=== PATIENT | female | born 1940 | race Caucasian/White ===

== ENCOUNTER 2021-07-22 10:13 | Observation (INO) ==
[2021-07-22] MEDS ORDERED: IOPAMIDOL 100 ML BOTTLE IV ONE (10:14)
--- NOTE | 2021-07-22 10:23 | Emergency Department Note ---
HPI General Chief complaint: Weakness Stated complaint: weakness Time Seen by Provider: 07/22/21 10:22 Source: EMS Mode of arrival: EMS Limitations: no limitations History of Present Illness HPI Narrative: 81-year-old female with past medical history of hypertension presenting with weakness and speech difficulty. Patient was seen in the ED yesterday and evaluated for an episode of generalized lower extremity weakness and presyncope. She was noted to be hypertensive. EKG, labs, and CT brain without contrast yesterday were normal. Patient's symptoms resolved and blood pressure improved with p.o. clonidine. She was discharged home in good condition. She returns this morning because around 10 AM she developed acute right-sided weakness of her right arm and right leg with associated numbness in the right face and difficulty speaking. She was able to call a family member and they brought her to the ED. Patient symptoms lasted about 10 minutes and resolved spontaneously. Currently she has no complaints, denies headache, weakness, vision changes, or difficulty speaking. No recent fall or head injury. No other complaints. Related Data Previous Rx's Medication Instructions Recorded hyoscyamine sulfate 0.125 mg 0.125 mg SUBLINGUAL QID PRN #30 tab 06/15/20 sublingual tablet (Levsin/SL) amlodipine 5 mg tablet 5 mg PO QDAY #30 tab 07/21/21 Allergies Allergy/AdvReac Type Severity Reaction Status Date / Time latex Allergy Mild Rash Verified 07/22/21 10:19 Review of Systems ROS ROS Narrative: Narrative: Constitutional: Denies fever or chills Eyes: Denies vision change ENT ED: Denies throat pain Cardiovascular: Denies chest pain or palpitations Respiratory: Denies shortness of breath or cough Gastrointestinal: Denies abdominal pain, nausea or vomiting Genitourinary: Denies dysuria or frequency Musculoskeletal: Denies back pain or joint swelling Integumentary: Denies rash or lesions Neurological: Reports weakness and numbness; Denies headache or dizziness Psychiatric: Denies anxiety Endocrine: Denies fatigue Hematological/Lymphatic: Denies easy bleeding PFSH Narrative Patient History Narrative: Narrative: Medical/Surgical/Family History All Active Problems (Updated 07/22/21 @ 15:10 by Jasvir Mathias MD) Hypertension (Acute) Transient ischemic attack (TIA) (Acute) Pre-syncope (Acute) Cholelithiasis (Acute) Social History Smoking Status: Never smoker Exam Narrative Narrative: Narrative: General Limitations: no limitations General appearance: Present alert and in no apparent distress Head Head: Present atraumatic and normocephalic Eye Eye: Present normal appearance, PERRL, EOMI and visual feliz intact; Absent scleral icterus, conjunctival injection or nystagmus ENT ENT: Present mucous membranes moist Neck Neck: Present normal inspection, full ROM and trachea midline; Absent meningismus or lymphadenopathy Chest Chest: Present symmetric chest wall rise Respiratory Respiratory: Present normal lung sounds bilaterally; Absent respiratory distress, wheezes, stridor, accessory muscle use or prolonged expiratory phase Cardiovascular Cardiovascular: Present regular rate and normal rhythm; Absent systolic murmur or diastolic murmur Adbominal Abdominal: Present soft; Absent distention, tenderness, guarding, rebound or rigidity Extremities Extremities: Present normal inspection; Absent pretibial edema Back Back: Present normal inspection; Absent spinous process tenderness Neurological Neurological: Present alert, oriented X3 and CN II-XII intact; Absent motor sensory deficit Expanded Neurological Patient oriented to: Present person, place and time Speech: Present fluid speech; Absent expressive aphasia or dysarthria CRANIAL NERVES: EOM function (II, III, IV, ): Normal, facial sensation (V): Normal, facial palsy (VII): Normal, gag reflex (IX): Normal, spinal accessory function (XI): Normal and tongue deviation (XII): Normal CEREBELLAR FUNCTION: finger to nose: Normal and heel to john: Normal CEREBELLAR FUNCTION: normal gait Motor strength - LUE: 5/5 Motor strength - RUE: 5/5 Motor strength - LLE: 5/5 Motor strength - RLE: 5/5 UPPER MOTOR NEURON EXAM: alvina neglect: Normal and pronator drift: Normal SENSORY EXAM UPPER EXTREMITY: Normal: light touch SENSORY EXAM LOWER EXTREMITY: Normal: light touch Coma Scale Eye Opening: Spontaneous Coma Scale Motor Response: Obeys Commands Coma Scale Verbal Response: Oriented Coma Scale Total: 15 Psychiatric Psychiatric: Present normal affect and normal mood Skin Skin: Present warm (WNL) and dry Course Consultations Consultation #1: Dr. Chris, neurologist at [facility] Time: 11:40 Consultation #2: Dr. Hayward, neurology at [facility] Vital Signs Vital signs: Vital Signs Temperature 97.5 F 07/22/21 10:15 Pulse Rate 73 07/22/21 10:15 Respiratory Rate 14 07/22/21 10:15 Blood Pressure 163/78 07/22/21 10:15 Pulse Oximetry (%) 97 07/22/21 10:15 Temperature 97.5 F 07/22/21 10:15 Pulse Rate 59 L 07/22/21 14:31 Respiratory Rate 17 07/22/21 14:31 Blood Pressure 160/70 07/22/21 14:31 Pulse Oximetry (%) 98 07/22/21 14:31 MDM MDM Narrative Medical decision making narrative: 81-year-old female presenting with right-sided weakness and speech difficulty that is resolved. She is mildly hypertensive today to 143/70. She has no neurologic deficits on exam, NIH stroke scale is 0. Given her similar symptoms consistent with TIA twice in the last 24 hours I consulted neurology, Dr. Chris, at [facility]. She recommends obtaining CTAs of the head and neck as well as an MRI of the brain without contrast to further evaluate. Will obtain these studies and reassess. 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 No other significant stenosis or occlusion noted. Dr. Chris of neurology also recommends starting the patient on aspirin 325mg daily and atorvastatin 80mg as long as there is no evidence of intracranial hemorrhage on imaging. Will give these to the patient at this time. Goal blood pressure should be less than 160 systolic. Plavix can be considered depending on MRI results. MRI is pending. 1450: MRI shows minimal chronic ischemic changes without evidence of acute CVA. Dr. Chris of neurology paged. 1503: I spoke with Dr. Hayward of neurology at [facility]. She recommends loading the patient with 300 mg of p.o. Plavix and admitting overnight for monitoring. She states patient should be started on aspirin 325 mg daily, statin, and Plavix 75 mg daily. Will plan for admission. Patient endorsed to onccristofer PALMA, Dr. Tolbert. Lab Data Lab results reviewed: Yes I reviewed the patient's lab results. Labs: Lab Results 07/22/21 Range/Units 12:32 POC Creatinine 1.0 (0.6-1.2) mg/dL Radiology Data Radiology results reviewed: Yes I reviewed the patient's radiology results. Radiology results narrative: Ordering Physician:Jasvir Mathias M.D. Date of Service:07/22/21 Procedure(s):CT head/brain wo con CLINICAL INFORMATION: Possible CVA COMPARISON: 07/21/2021 TECHNIQUE: 2.5 mm helical slices were obtained in the skull base to vertex. Following reconstruction, axial reformatted images were reviewed at bone and parenchymal windows. The exam was performed using radiation dose optimization techniques including, but not limited to, automated exposure control, adjustment of the mA and/or kV according to patient size and use of iterative reconstruction technique. FINDINGS: The ventricles, sulci, fissures, and cisterns are symmetrically enlarged compatible with mild age-related atrophy. No extra-axial fluid collections are identified. Mild patchy chronic ischemic changes, in the deep cerebral white matter, are expected for age. There is no hemorrhage, mass effect, or edema. Bone windows show no osseous abnormality. IMPRESSION: Mild atrophy and chronic ischemic changes in the deep cerebral white matter-expected for age. No acute findings Interpreted and Authenticated by: Best Max 07/22/21 Ordering Physician:Jasvir Mathias M.D. Date of Service:07/22/21 Procedure(s):CT angio head CLINICAL INFORMATION: Right-sided weakness and dysarthria. Possible CVA COMPARISON: None. TECHNIQUE: 80 cc of Isovue-370 were injected intravenously , and using SmartPrep to maximize cerebral arterial opacification, 0.625 mm helical slices were obtained from the skull base through the cerebral vertex. Following reconstruction , sagittal, coronal and axial reformatted images were processed and reviewed at multiple windows and levels. 3D volume rendered and MIP images were acquired at a independent workstation. The exam was performed using radiation dose optimization techniques including, but not limited to, automated exposure control, adjustment of the mA and/or kV according to patient size and use of iterative reconstruction technique. FINDINGS: The intracranial right vertebral artery is hypoplastic with left vertebral artery dominance. There is mild (50%) stenosis of the M1 segment of the right middle cerebral artery. The remaining right middle, intracranial internal carotid, basilar, anterior, and posterior cerebral arteries and their branches are well-opacified and normal in contour and caliber without significant stenosis, occlusion or other pathology. Superficial/deep cerebral veins and deep venous sinuses are widely patent IMPRESSION: 1. 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 No evidence of significant stenosis or occlusion. Interpreted and Authenticated by: Best Max 07/22/21 Ordering Physician:Jasvir Mathias M.D. Date of Service:07/22/21 Procedure(s):CT angio neck CLINICAL INFORMATION: Right-sided weakness and dysarthria COMPARISON: None. TECHNIQUE: 80 cc of Isovue-300 were injected intravenously followed by 40 cc of normal saline flush. Using SmartPrep, 0.625 helical slices were obtained from the thoracic aortic arch through the [place]. Following reconstruction, 2.5 mm sagittal, coronal and axial reformatted images were processed. MIPS , 3-D volume rendering and CPR images were also constructed. The exam was performed using radiation dose optimization techniques including, but not limited to, automated exposure control, adjustment of the mA and/or kV according to patient size and use of iterative reconstruction technique. FINDINGS: The thoracic aortic arch is normal diameter with minimal intimal thickening and conventional aortic branching. The brachiocephalic, both subclavian, both common, internal and external carotid and both vertebral arteries are widely patent without significant abnormality. Markedly enlarged multinodular thyroid appreciated compatible with multinodular adenoma IMPRESSION: No vascular abnormality. Enlarged Multinodular thyroid adenoma Interpreted and Authenticated by: Best Max 07/22/21 Ordering Physician:Jasvir Mathias M.D. Date of Service:07/22/21 Procedure(s):MR head/brain stroke CLINICAL INFORMATION: Right-sided weakness and dysarthria. Question CVA COMPARISON: Head CT 07/22/2021 TECHNIQUE:Sagittal T1 FLAIR, axial T2 FLAIR propeller, diffusion, and ADC images were acquired FINDINGS: The ventricles, sulci, fissures and cisterns are normal in size configuration-no for age extra-axial fluid collections or mass are appreciated. Scattered chronic ischemic foci in the cerebral white matter are expected for age. There are no regions of restricted diffusion to suggest acute CVA. No hemorrhage edema or mass effect. The signal void in intracerebral arteries, extra-axial cranial nerves, pituitary, orbits and paranasal sinuses are all normal. IMPRESSION: Mild atrophy and minimal chronic ischemic changes in the cerebral white matter-expected for age. No evidence of acute CVA Interpreted and Authenticated by: Best Max 07/22/21 15 15 Auto Roller: <Electronically signed by Best Max M.D. in [place]> 07/22/211417 Discharge Plan Patient/Caregiver Discharge Instructions Pt seen by MEDICAL STAFF DIRECTOR/PA only: No Clinical Impression: Transient ischemic attack (TIA) Patient Disposition: Still a Patient Follow up with: Devante Magallanes DO [Primary Care Provider] - Prescriptions: No Action hyoscyamine sulfate [Levsin/SL] 0.125 mg tablet, sublingual 0.125 mg SUBLINGUAL QID PRN (Reason: pain) Qty: 30 0RF amlodipine 5 mg tablet 5 mg PO QDAY Qty: 30 0RF
--- NOTE | 2021-07-22 12:59 | Cat Scan Report ---
CLINICAL INFORMATION: Possible CVA COMPARISON: 07/21/2021 TECHNIQUE: 2.5 mm helical slices were obtained in the skull base to vertex. Following reconstruction, axial reformatted images were reviewed at bone and parenchymal windows. The exam was performed using radiation dose optimization techniques including, but not limited to, automated exposure control, adjustment of the mA and/or kV according to patient size and use of iterative reconstruction technique. FINDINGS: The ventricles, sulci, fissures, and cisterns are symmetrically enlarged compatible with mild age-related atrophy. No extra-axial fluid collections are identified. Mild patchy chronic ischemic changes, in the deep cerebral white matter, are expected for age. There is no hemorrhage, mass effect, or edema. Bone windows show no osseous abnormality. IMPRESSION: Mild atrophy and chronic ischemic changes in the deep cerebral white matter-expected for age. No acute findings Interpreted and Authenticated by: Best Max 07/22/21
--- NOTE | 2021-07-22 13:38 | Cat Scan Report ---
CLINICAL INFORMATION: Right-sided weakness and dysarthria. Possible CVA COMPARISON: None. TECHNIQUE: 80 cc of Isovue-370 were injected intravenously , and using SmartPrep to maximize cerebral arterial opacification, 0.625 mm helical slices were obtained from the skull base through the cerebral vertex. Following reconstruction , sagittal, coronal and axial reformatted images were processed and reviewed at multiple windows and levels. 3D volume rendered and MIP images were acquired at a independent workstation. The exam was performed using radiation dose optimization techniques including, but not limited to, automated exposure control, adjustment of the mA and/or kV according to patient size and use of iterative reconstruction technique. FINDINGS: The intracranial right vertebral artery is hypoplastic with left vertebral artery dominance. There is mild (50%) stenosis of the M1 segment of the right middle cerebral artery. The remaining right middle, intracranial internal carotid, basilar, anterior, and posterior cerebral arteries and their branches are well-opacified and normal in contour and caliber without significant stenosis, occlusion or other pathology. Superficial/deep cerebral veins and deep venous sinuses are widely patent IMPRESSION: 1. 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 No evidence of significant stenosis or occlusion. Interpreted and Authenticated by: Best Max 07/22/21
--- NOTE | 2021-07-22 13:41 | Cat Scan Report ---
CLINICAL INFORMATION: Right-sided weakness and dysarthria COMPARISON: None. TECHNIQUE: 80 cc of Isovue-300 were injected intravenously followed by 40 cc of normal saline flush. Using SmartPrep, 0.625 helical slices were obtained from the thoracic aortic arch through the [place]. Following reconstruction, 2.5 mm sagittal, coronal and axial reformatted images were processed. MIPS , 3-D volume rendering and CPR images were also constructed. The exam was performed using radiation dose optimization techniques including, but not limited to, automated exposure control, adjustment of the mA and/or kV according to patient size and use of iterative reconstruction technique. FINDINGS: The thoracic aortic arch is normal diameter with minimal intimal thickening and conventional aortic branching. The brachiocephalic, both subclavian, both common, internal and external carotid and both vertebral arteries are widely patent without significant abnormality. Markedly enlarged multinodular thyroid appreciated compatible with multinodular adenoma IMPRESSION: No vascular abnormality. Enlarged Multinodular thyroid adenoma Interpreted and Authenticated by: Best Max 07/22/21
[2021-07-22] MEDS ORDERED: ATORVASTATIN 40 MG TABLET PO ONE (14:09)
[2021-07-22] MEDS ORDERED: ASPIRIN 325 MG ENTERIC COATED TABLET PO ONE (14:09)
--- NOTE | 2021-07-22 14:22 | Magnetic Resonance Report ---
CLINICAL INFORMATION: Right-sided weakness and dysarthria. Question CVA COMPARISON: Head CT 07/22/2021 TECHNIQUE:Sagittal T1 FLAIR, axial T2 FLAIR propeller, diffusion, and ADC images were acquired FINDINGS: The ventricles, sulci, fissures and cisterns are normal in size configuration-no for age extra-axial fluid collections or mass are appreciated. Scattered chronic ischemic foci in the cerebral white matter are expected for age. There are no regions of restricted diffusion to suggest acute CVA. No hemorrhage edema or mass effect. The signal void in intracerebral arteries, extra-axial cranial nerves, pituitary, orbits and paranasal sinuses are all normal. IMPRESSION: Mild atrophy and minimal chronic ischemic changes in the cerebral white matter-expected for age. No evidence of acute CVA Interpreted and Authenticated by: Best Max 07/22/21
[2021-07-22] MEDS ORDERED: CLOPIDOGREL 300 MG TABLET PO ONE (14:58)
[2021-07-22] MEDS ORDERED: ATORVASTATIN 10 MG TABLET PO SCH (16:25)
[2021-07-22] MEDS ORDERED: BISACODYL 10 MG SUPP.RECT PR PRN (16:28)
[2021-07-22] MEDS ORDERED: HYDROmorphone 0.5 MG/0.5 ML SYRINGE IV PRN (16:28)
[2021-07-22] MEDS ORDERED: oxyCODONE HCL 5 MG TABLET PO PRN (16:28)
[2021-07-22] MEDS ORDERED: MAG HYDROX/AL HYDROX/SIMETH 30 ML ORAL.SUSP PO PRN (16:28)
[2021-07-22] MEDS ORDERED: PROCHLORPERAZINE 10 MG/2 ML VIAL IV PRN (16:28)
[2021-07-22] MEDS ORDERED: MAGNESIUM HYDROXIDE 30 ML ORAL.SUSP PO PRN (16:28)
[2021-07-22] MEDS ORDERED: ALBUTEROL SULFATE 2.5 MG/3 ML NEBULIZER NEB PRN (16:28)
[2021-07-22] MEDS ORDERED: ONDANSETRON 4 MG/2 ML VIAL IV PRN (16:28)
[2021-07-22] MEDS ORDERED: ACETAMINOPHEN 325 MG TABLET PO PRN (16:28)
[2021-07-22] MEDS ORDERED: traZODone HCL 50 MG TABLET PO PRN (16:28)
[2021-07-22] MEDS ORDERED: NITROGLYCERIN 0.4 MG TAB.SUBL SL PRN (16:28)
--- NOTE | 2021-07-22 16:45 | Internal Med History&Physical ---
HPI History of Present Illness Patient information: Note initiated : 07/22/21 at 4:34 pm Service Date, if different from initiated Date: [] Patient: Rylee Evangelista a 81 y/o F admitted on for weakness. Chief Complaint: [] History of present illness: Ms. Evangelista is a 81 year of F With history of hypertension, presents to the emergency room today for evaluation of right-sided weakness. The patient reports that yesterday she had a similar episode in which the right side of the face and right side of her body was numb, she felt weak and therefore she had presented to the emergency room. By the time she reached the ER, her symptoms had resolved, they diagnosed her with hypertension, give her some clonidine start on p.o. amlodipine and sent home. Head CT was done which was negative. The patient again today had another episode of right-sided facial numbness, slurring of speech, and weakness on the right upper and lower extremity. Symptoms lasted around 10 minutes and she presented to the emergency room again. By the time she reached the emergency room all her symptoms had resolved except for mild slurring. Which has since resolved. 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 EKG was sinus on monitor, full ekg pending Patient case was discussed with neurology, advised loading with clopidogrel, and admitting the patient to the hospital for further monitoring.The patient denies any headache, denies any difficulty in swallowing at present, denies any cough or fever, denies any bowel bladder issues. Review of Systems All systems: reviewed and no additional remarkable complaints except as stated PFSH PFSH All Active Problems Hypertension (Acute) Transient ischemic attack (TIA) (Acute) Pre-syncope (Acute) Cholelithiasis (Acute) MEDS/ALLERGIES Home Medications and Allergies Home Medications Medication Instructions Recorded Confirmed Type hyoscyamine sulfate 0.125 mg 0.125 mg SUBLINGUAL QID PRN #30 tab 06/15/20 Rx sublingual tablet (Levsin/SL) amlodipine 5 mg tablet 5 mg PO QDAY #30 tab 07/21/21 Rx Allergies Allergy/AdvReac Type Severity Reaction Status Date / Time latex Allergy Mild Rash Verified 07/22/21 10:19 EXAM Constitutional Vitals: Temp Pulse Resp BP Pulse Ox 97.5 F 59 L 23 H 160/70 98 07/22/21 10:15 07/22/21 14:31 07/22/21 15:16 07/22/21 14:31 07/22/21 14:31 General appearance: cooperative, no acute distress and obese Head Head exam: Present atraumatic and normal inspection Eye Eye exam: Present EOMI, normal appearance and PERRL; Absent scleral icterus ENT ENT exam: Present mucous membranes moist and normal external ear exam Neck Neck exam: Present full ROM and normal inspection Cardiovascular Cardiovascular exam: Present normal rate and rhythm, +S1 and +S2 GI/Abdominal GI/Abdominal exam: Present normal bowel sounds and soft; Absent guarding or tenderness Rectal Rectal exam: Present deferred Neurological Exam Neurological exam: Present alert, CN II-XII intact and oriented X3 Expanded Neurological Exam Neurological exam: Present protecting the airway; Absent expressive aphasia or receptive aphasia Patient oriented to: Present person, place and time Speech: Present fluid speech Cranial nerves: EOM's intact: Normal Sensory exam: lower extremity light touch: Normal and upper extremity light touch: Normal Neuro motor strength exam: LUE: 5, RUE: 5, LLE: 5 and RLE: 5 Coma Scale Eye Opening: Spontaneous Coma Scale Motor Response: Obeys Commands Coma Scale Verbal Response: Oriented Coma Scale Total: 15 Psychiatric Psychiatric exam: Present normal affect and normal mood Skin Skin exam: Absent cyanosis, petechiae or rash DATA Data Completed and Pending Labs: Labs from last 24 hours 07/22/21 12:32 POC Creatinine 1.0 A/P Narrative A/P Narrative: A/P TIA Hypertension, essential Obesity, bmi > 30 Plan Admit to obs status Neurochecks q4hrs monitor bp, continue amlodipine for now ASA 81mg dailiy, (325 x 1 given), Plavix [id number], continue plavix 75mg daily x 3 weeks, then only asa 81 (as recommended by neurology) High dose statin started, get echo with buble monitor on tele if no e/o afib consider getting a meghan of heart 30 day holter at dischage. Time Spent With Patient Time: Total time spent is greater than 50% in coordination of care (as documented) at patient's floor/unit and/or counseling patient:
[2021-07-22 17:02] LABS: HDL Cholesterol 64 mg/dL (>40); LDL Cholesterol,Calculated 102 mg/dL (<100); Non-HDL Cholesterol 120 mg/dL (<130); Triglycerides 94 mg/dL (<150)
[2021-07-22 17:09] LABS: Estimated Average Glucose(eAG) 111 mg/dL; Hemoglobin A1C 5.5 % Hgb (4.0-6.0)
[2021-07-22 17:42] LABS: Basophils # (Auto) 0.03 K/mcL (0.00-0.30); Basophils % (Auto) 0.4 % (0.0-2.0); Eosinophils # (Auto) 0.12 K/mcL (0.00-0.70); Eosinophils % (Auto) 1.8 % (0.0-7.0); Hematocrit 39.7 % (34.1-44.9); Hemoglobin 13.1 g/dL (11.2-15.7); Lymphocytes # (Auto) 1.15 K/mcL (1.50-4.80); Lymphocytes % (Auto) 17.1 % (15.5-49.0); Mean Cell Volume 91.1 fL (80.0-100.0); Mean Platelet Volume 12.6 fL (7.4-10.4); Monocytes # (Auto) 0.57 K/mcL (0.10-0.90); Monocytes % (Auto) 8.5 % (1.0-12.0); Neutrophils % (Auto) 72.2 % (38.0-78.0); Platelet Count 197 K/mcL (140-440); RBC 4.36 M/mcL (3.59-5.38); Red Cell Distribution Width 14.2 % (11.5-14.5); WBC 6.7 K/mcL (4.5-11.0)
[2021-07-22 17:45] LABS: Prothrombin Time 13.3 sec (11.9-14.5)
[2021-07-22 17:53] LABS: ALT/SGPT 14 U/L (<40); AST/SGOT 21 U/L (<32); Albumin 3.6 gm/dL (3.2-5.2); Albumin/Globulin Ratio 1.3 (1.0-2.3); Alkaline Phosphatase 116 U/L (39-117); Bilirubin,Direct < 0.2 mg/dL (0-0.3); Bilirubin,Total 0.4 mg/dL (0.1-1.0); Blood Urea Nitrogen 20 mg/dL (8-23); Calcium 8.7 mg/dL (8.6-10.4); Carbon Dioxide 24 mmol/L (22-30); Chloride 102 mmol/L (96-108); Globulin 2.8 gm/dL (2.2-3.7); Glomerular Filtration Rate 60; Glucose 96 mg/dL (70-105); Lactate Dehydrogenase 190 U/L (135-225); Phosphorous 2.8 mg/dL (2.5-4.5); Triglycerides 99 mg/dL (<150); Uric Acid 6.5 mg/dL (2.5-8.0)
[2021-07-22] MEDS: amLODIPine 5 MG TABLET PO SCH (18:55)
[2021-07-22] MEDS: FAMOTIDINE 20 MG TABLET PO SCH (20:03)
[2021-07-22] MEDS: 0.9 % SODIUM CHLORIDE 10 ML SYRINGE IV SCH (20:04)
[2021-07-22] MEDS: DOCUSATE SODIUM 100 MG CAPSULE PO SCH (20:04)
[2021-07-22] MEDS ORDERED: ATORVASTATIN 40 MG TABLET PO SCH (21:00)
[2021-07-22] MEDS ORDERED: SENNOSIDES 1 TABLET PO SCH (21:00)
[2021-07-23] MEDS: 0.9 % SODIUM CHLORIDE 10 ML SYRINGE IV SCH (04:06)
[2021-07-23 07:11] LABS: Basophils # (Auto) 0.05 K/mcL (0.00-0.30); Eosinophils # (Auto) 0.23 K/mcL (0.00-0.70); Eosinophils % (Auto) 4.5 % (0.0-7.0); Hematocrit 42.1 % (34.1-44.9); Hemoglobin 13.4 g/dL (11.2-15.7); Lymphocytes # (Auto) 1.42 K/mcL (1.50-4.80); Mean Cell Volume 94.4 fL (80.0-100.0); Mean Corpuscular HGB Conc 31.8 g/dL (31.0-36.0); Mean Platelet Volume 11.9 fL (7.4-10.4); Monocytes # (Auto) 0.45 K/mcL (0.10-0.90); Monocytes % (Auto) 8.9 % (1.0-12.0); Neutrophils % (Auto) 57.6 % (38.0-78.0); Platelet Count 189 K/mcL (140-440); RBC 4.46 M/mcL (3.59-5.38); Red Cell Distribution Width 14.4 % (11.5-14.5); WBC 5.1 K/mcL (4.5-11.0)
[2021-07-23 07:51] LABS: ALT/SGPT 11 U/L (<40); AST/SGOT 17 U/L (<32); Albumin 3.3 gm/dL (3.2-5.2); Albumin/Globulin Ratio 1.2 (1.0-2.3); Alkaline Phosphatase 98 U/L (39-117); Bilirubin,Direct < 0.2 mg/dL (0-0.3); Bilirubin,Total 0.9 mg/dL (0.1-1.0); Blood Urea Nitrogen 14 mg/dL (8-23); Calcium 8.7 mg/dL (8.6-10.4); Carbon Dioxide 21 mmol/L (22-30); Chloride 105 mmol/L (96-108); Globulin 2.8 gm/dL (2.2-3.7); Glomerular Filtration Rate 81; Glucose 97 mg/dL (70-105); Lactate Dehydrogenase 170 U/L (135-225); Phosphorous 3.2 mg/dL (2.5-4.5); Triglycerides 76 mg/dL (<150); Uric Acid 6.2 mg/dL (2.5-8.0)
[2021-07-23] MEDS: DOCUSATE SODIUM 100 MG CAPSULE PO SCH (08:46)
[2021-07-23] MEDS: amLODIPine 5 MG TABLET PO SCH (08:46)
[2021-07-23] MEDS: FAMOTIDINE 20 MG TABLET PO SCH (08:46)
--- NOTE | 2021-07-23 08:56 | EKG ---
[facility] Test Date: 2021-07-22 Pat Name: Rylee Evangelista Department: ED Room: Gender: Female Practice Support Specialist: : [id number] Requested By: Daniel Alejandre Order Number: [id number] Reading MD: Amna Justin D.O. Measurements Intervals [place] Rate: 59 P: 74 MA: 182 QRS: 0 QRSD: 88 T: 45 QT: 427 QTc: 423 Interpretive Statements Sinus rhythm Abnormal R-wave progression, early transition Electronically Signed On 07-23-2021 8:55:50 PST by Amna Justin D.O. /store/[id number]
[2021-07-23] MEDS ORDERED: ASPIRIN 81 MG TAB.CHEW PO SCH (09:00)
[2021-07-23] MEDS ORDERED: CLOPIDOGREL 75 MG TABLET PO SCH (09:00)
[2021-07-23] MEDS ORDERED: ENOXAPARIN 40 MG/0.4 ML SYRINGE SQ SCH (09:00)
--- NOTE | 2021-07-23 09:43 | Discharge Summary ---
Discharge Provider Provider Patient information: Note initiated : 07/23/21 at 9:42 am Service Date, if different from initiated Date: [] Patient: Rylee Evangelista 81 y/o F admitted on 07/22/21 for weakness. Chief Complaint: [] Date of admission: 07/22/21 17:34 Discharge date: 07/23/21 Primary care physician: Devante Magallanes DO Admitting clinician: Daniel Alejandre Attending physician on admission: Daniel Alejandre Consults: 07/22/21 Consult to Physician [CONS] Stat Comment: Consulting Provider: Daniel Alejandre Reason For Exam: Physician to Consult Attending physician on discharge: Daniel Alejandre Discharging clinician: Daniel Alejandre Discharge Meds Discharge Medications Home Medications hyoscyamine sulfate 0.125 mg sublingual tablet (Levsin/SL) 0.125 mg SUBLINGUAL QID PRN #30 tab 06/15/20 [Rx Confirmed 07/22/21 Last Taken Unknown] Aspirin 81 mg PO DAILY #30 tab 07/23/21 [Rx Last Taken Unknown] amlodipine 5 mg tablet 5 mg PO QDAY #30 tab 07/23/21 [Rx Last Taken Unknown] atorvastatin 40 mg tablet 80 mg PO HS #30 tab 07/23/21 [Rx Last Taken Unknown] clopidogrel 75 mg tablet 75 mg PO DAILY #20 tab 07/23/21 [Rx Last Taken Unknown] COURSE Hospital Course Hospital course: History of present illness: Ms. Evangelitsa is a 81 year of F With history of hypertension, presented to the emergency room for evaluation of right-sided weakness. The patient reports that a day prior she had a similar episode in which the right side of the face and right side of her body was numb, she felt weak and therefore she had presented to the emergency room. By the time she reached the ER, her symptoms had resolved, they diagnosed her with hypertension, give her some clonidine start on p.o. amlodipine and sent home. Head CT was done which was negative. The patient again today had another episode of right-sided facial numbness, slurring of speech, and weakness on the right upper and lower extremity. Symptoms lasted around 10 minutes and she presented to the emergency room again. By the time she reached the emergency room all her symptoms had resolved except for mild slurring. Which has since resolved. 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 EKG was sinus , Patient case was discussed with neurology, advised loading with clopidogrel, and admitting the patient to the hospital for further monitoring.The patient denies any headache, denies any difficulty in swallowing at present, denies any cough or fever, denies any bowel bladder issues. The patient was observed overnight, Tele remained sinus, Patient had stable neurological function, no neurological deficits were noted The patient undewent an Echo which showed normal lvef, but grade 2 diastolic chf TIA -MR neg, neurologically intact, started on dual antiplatlet agents, ASA 81 and plavix 75, plavix is for total of 3 weeks, after which pt to continue only asa 81, -started on high dose sttin HTN Diastolic chf -bp has been controlled with 5mg amlodipine, continue same follow up with pcp No other changes made to pts home med list At the time of discharge pt is hemodynamically stable, tolerating po well and ambulating without any issues. Discharge diagnosis: TIA Secondary discharge diagnosis: HTN Obesity Diastolic chf grade 2 Reason for admission: Right side weakness Pertinent studies/significant findings: Echo Normal lvef grade 2 diastolic chf MRI head Neg for CVa Head CT neg CTA head 50% stenosis M1 segment right middle cerebral artery. No evidence of significant stenosis or occlusion. Time Spent with Patient Time attestation: Total time spent providing and/or coordinating discharge services: Time spent: Greater than 30 minutes EXAM Constitutional Vitals: Temp Pulse Resp BP Pulse Ox 97.4 F 62 20 135/64 98 07/23/21 08:00 07/23/21 04:04 07/23/21 08:00 07/23/21 08:00 07/23/21 08:00 Additional findings Additional findings: Physical Exam Constitutional; Afebrile, cooperative, alert, not in distress. Eyes- No icterus, , No periorbital swelling Ears- Ext ear normal, hearing normal to conversation. Neck- Midline trachea, supple Respiratory system: Air Entry equal on both sides, No crackles or wheezing, no rhonchi. CVS- Rate rhythm regular, S1,S2 heard, no gallop, no rub. Abdomen- Soft nontender abdomen, no organomegaly, no tenderness, no guarding or rigidity, [employer]- AOOx3, moving all extremities, no gross focal deficit noted. Discharge Data Data Completed and Pending Labs on day of discharge: Labs from last 24 hours 07/23/21 07/23/21 07/22/21 05:03 05:03 12:38 WBC 5.1 RBC 4.46 Hgb 13.4 Hct 42.1 MCV 94.4 MCH 30.0 MCHC 31.8 RDW 14.4 Plt Count 189 MPV 11.9 H Neut % (Auto) 57.6 Lymph % (Auto) 28.0 Treasure % (Auto) 8.9 Eos % (Auto) 4.5 Baso % (Auto) 1.0 Lymph # (Auto) 1.42 L Treasure # (Auto) 0.45 Eos # (Auto) 0.23 Baso # (Auto) 0.05 Absolute Neutrophils 2.92 PT INR Sodium 136 139 Potassium 4.0 3.7 Chloride 105 102 Carbon Dioxide 21 L 24 Anion Gap 10.0 13.0 BUN 14 20 Creatinine 0.7 0.9 POC Creatinine GFR Calculation 81 60 Glucose 97 96 Hemoglobin A1c Estim Average Glucose Uric Acid 6.2 6.5 Calcium 8.7 8.7 Phosphorus 3.2 2.8 Magnesium 2.0 2.0 Total Bilirubin 0.9 0.4 Direct Bilirubin < 0.2 < 0.2 GGT 13 10 AST 17 21 ALT 11 14 Alkaline Phosphatase 98 116 Lactate Dehydrogenase 170 190 Total Protein 6.1 6.4 Albumin 3.3 3.6 Globulin 2.8 2.8 Albumin/Globulin Ratio 1.2 1.3 Triglycerides 76 99 Cholesterol LDL Cholesterol, Calc Non-HDL Cholesterol HDL Cholesterol 07/22/21 07/22/21 07/22/21 12:38 12:38 12:38 WBC 6.7 RBC 4.36 Hgb 13.1 Hct 39.7 MCV 91.1 MCH 30.0 MCHC 33.0 RDW 14.2 Plt Count 197 MPV 12.6 H Neut % (Auto) 72.2 Lymph % (Auto) 17.1 Treasure % (Auto) 8.5 Eos % (Auto) 1.8 Baso % (Auto) 0.4 Lymph # (Auto) 1.15 L Treasure # (Auto) 0.57 Eos # (Auto) 0.12 Baso # (Auto) 0.03 Absolute Neutrophils 4.86 PT 13.3 INR 1.0 Sodium Potassium Chloride Carbon Dioxide Anion Gap BUN Creatinine POC Creatinine GFR Calculation Glucose Hemoglobin A1c 5.5 Estim Average Glucose 111 Uric Acid Calcium Phosphorus Magnesium Total Bilirubin Direct Bilirubin GGT AST ALT Alkaline Phosphatase Lactate Dehydrogenase Total Protein Albumin Globulin Albumin/Globulin Ratio Triglycerides 94 Cholesterol 184 LDL Cholesterol, Calc 102 H Non-HDL Cholesterol 120 HDL Cholesterol 64 07/22/21 12:32 WBC RBC Hgb Hct MCV MCH MCHC RDW Plt Count MPV Neut % (Auto) Lymph % (Auto) Treasure % (Auto) Eos % (Auto) Baso % (Auto) Lymph # (Auto) Treasure # (Auto) Eos # (Auto) Baso # (Auto) Absolute Neutrophils PT INR Sodium Potassium Chloride Carbon Dioxide Anion Gap BUN Creatinine POC Creatinine 1.0 GFR Calculation Glucose Hemoglobin A1c Estim Average Glucose Uric Acid Calcium Phosphorus Magnesium Total Bilirubin Direct Bilirubin GGT AST ALT Alkaline Phosphatase Lactate Dehydrogenase Total Protein Albumin Globulin Albumin/Globulin Ratio Triglycerides Cholesterol LDL Cholesterol, Calc Non-HDL Cholesterol HDL Cholesterol Discharge Plan Patient/Caregiver Discharge Instructions Activity: increase activity as tolerated Diet: Low Sodium (2gm) and Cardiac Instructions: Transient Ischemic Attack (DC) Prescriptions: New Aspirin 81 mg PO DAILY Qty: 30 0RF atorvastatin 40 mg Tablet 80 mg PO HS Qty: 30 0RF clopidogrel 75 mg Tablet 75 mg PO DAILY Qty: 20 0RF Continued hyoscyamine sulfate [Levsin/SL] 0.125 mg tablet, sublingual 0.125 mg SUBLINGUAL QID PRN (Reason: pain) Qty: 30 0RF amlodipine 5 mg tablet 5 mg PO QDAY Qty: 30 0RF Follow Up Plan Follow up with: Devante Magallanes DO [Primary Care Provider] - Patient Disposition: Home, Self-Care Care Plan Goals: You have been diagnosed with an TIA Please follow up with your PCP in 1 week D/W with your PCP need for a Enrrique Stand In heart monitor for 30days Take aspirin 81mg daily and Take clopidogrel for 3 more weeks (20 more days now) Take atorvastatin 80mg daily Rehab Potential: Good I certify that the patient requires SNF services: No Overall status at discharge: patient is back to baseline Discharge Orders: Discharge Order (Routine); Ordered 07/23/21 Ordered By: Daniel Alejandre QUALITY VTE Deep Vein Thrombosis/Pulmonary Embolism Present on Admission: No
[2021-07-23] MEDS ORDERED: amLODIPine 5 MG TABLET PO ONE (12:45)
== END 2021-07-23 12:50 | disposition home or self-care (01) ==
LOC: ED 10:13 → INTOOBSV 17:34 → MEDSUR 17:34
PROVIDERS: ADMIT Internal Medicine; ATTEND Internal Medicine